=== PATIENT | male | born 1995 | race Caucasian/White ===

== ENCOUNTER 2019-11-30 13:20 | Emergency (ER) | payer BC, SELFPAY ==
[2019-11-30 13:27] VITALS: BP 137/77; PULSE 94; RESP 18; TEMP 36.3; O2SAT 97
--- NOTE | 2019-11-30 13:50 | ED.GENADUL_ITS ---
Discharge Plan Disposition Patient Disposition: HOME Discharge Details Chief Complaint: Orthopedic Clinical Impression: Right ankle sprain Primary Care Provider: None,None ED Provider: Vlad Horn Home Meds and New Rx's Prescriptions: Continued ibuprofen 800 mg Tablet 800 mg PO TID PRNRF: 0 Discharge Instructions Instructions: Ankle Sprain (ED) Additional Instructions: Please take ibuprofen over the counter. Take 600-800mg by mouth every 6-8 hours as needed for pain. Please take acetaminophen (tylenol) - 650mg every 6 hours by mouth as needed for pain. Use lace up ankle stabilizer and crutches over the next 2 weeks. If pain persists despite recommended treatment, please follow-up with orthopedics Return to the ER for any worsening or new concerning symptoms. Stand Alone Forms: Physical Therapy Referral, Work Release Referrals: Da Sanchez MD [ [facility] STAFF PHYSICIAN] - Discharge Data Discharge Date/Time-TO BE ENTERED AT DEPARTURE: 11/30/19 15:11 Medical Decision Making 6552 --24-year-old male here with right ankle pain after injury snowboarding yesterday. Patient has pain when he ambulates and is tender over his lateral malleolus. -- X-ray of the right ankle reviewed and interpreted by radiology: There is no evidence of acute fracture. There is no evidence of malalignment or dislocation. Suspect ankle sprain. Plan for lace up ankle stabilizer and crutches. HPI General Mode of arrival: ambulatory . Date/Time Provider Initiated Documentation: 11/30/19 13:35 . Limitations to Documentation: no limitations . Information obtained by: patient . HPI Narrative: 24-year-old male presents with chief complaint of right ankle pain. Patient notes yesterday was snowboarding and fell and twisted his ankle in loose boot. He has had pain in his lateral ankle since the fall. He has associated swelling. Pain is moderate and worse with ambulation. No other injury. He did not hit his head. Related Data Home Medications Medication Instructions Recorded Confirmed ibuprofen 800 mg PO TID PRN 11/30/19 11/30/19 Allergies Allergy/AdvReac Type Severity Reaction Status Date / Time No Known Allergies Allergy Unverified 11/30/19 13:30 General Stated Complaint: Orthopedic KIMBERLY: 4 Review of Systems Musculoskeletal Musculoskeletal: Reports as per HPI and Denies numbness Neurologic Neurologic: Denies numbness [facility] Social History Smoking/Tobacco Use Status: Never Alcohol Intake: current Alcohol Intake frequency: a few times a week Drug use: Never Substance use type: does not use Exam Const General: cooperative and no acute distress Cardio Rate: regular rate and not tachycardic Rhythm: regular rhythm Pulses: dorsalis pedis pulses present bilaterally 2+ Skin General skin exam: no rashes or lesions noted Neuro General: alert, awake, oriented x3 and tone normal Extrem Right lower extremity: lower leg Details: normal to inspection, ankle Details: tenderness Location: of the lateral malleolus and swelling Details: laterally and foot Details: normal to inspection Course Vital Signs Vital signs: Vital Signs Temperature 36.3 C L 11/30/19 13:27 Pulse 94 H 11/30/19 13:27 Respiratory Rate 18 11/30/19 13:27 Blood Pressure 137/77 11/30/19 13:27 Pulse Oximetry 97 11/30/19 13:27 Temperature 36.3 C L 11/30/19 13:27 Temperature Source Skin 11/30/19 13:27 Pulse 94 H 11/30/19 13:27 Respiratory Rate 18 11/30/19 13:27 Respiratory Effort Non-Labored 11/30/19 13:30 Blood Pressure 137/77 11/30/19 13:27 Blood Pressure Position Sitting 11/30/19 13:27 Pulse Oximetry 97 11/30/19 13:27 Oxygen Delivery Method Room Air 11/30/19 13:27 Oxygen Flow Rate 0 11/30/19 13:27 Pain Level 8 11/30/19 13:34
--- NOTE | 2019-11-30 13:57 | DI.RAD_ITS ---
EXAM: XR ANKLE RT COMPLETE INDICATION: injury, swelling, pain lateral,SNOWBOARDING INJURY COMPARISON: No exams were available for comparison TECHNIQUE: 2D digital imaging was performed. FINDINGS: No acute fracture or dislocation is present. There is soft tissue swelling about the ankle bilateral ly. No radiopaque foreign bodies are seen in the soft tissues. IMPRESSION: No acute fracture or dislocation.
--- NOTE | 2019-11-30 14:38 | DI.VRAD_ITS ---
PROCEDURE INFORMATION: Exam: XR Right Ankle Exam date and time: 11/30/2019 1:48 PM Age: 24 years old Clinical indication: Other: Injury, swelling, pain lateral TECHNIQUE: Imaging protocol: XR Right ankle. Views: 3 or more views. COMPARISON: No relevant prior studies available. FINDINGS: Bones/joints: There is no evidence of acute fracture.There is no evidence of malalignment or dislocation. Soft tissues: Bimalleolar soft tissue swelling IMPRESSION: There is no evidence of acute fracture.There is no evidence of malalignment or dislocation. Dictated and Authenticated by: Ronnell Yuen MD. Ordering:PAVEL Chu MD
== END 2019-11-30 15:11 | disposition home or self-care (01) ==
PROVIDERS: Emergency Provider Student in an Organized Health Care Education/Training Program
DX: S93.401A Sprain of unspecified ligament of right ankle, initial encounter (principal); V00.311A Fall from snowboard, initial encounter
CPT/HCPCS: 29515; 99283; 73610; L1902

== ENCOUNTER 2022-07-13 02:23 | Outpatient (CLI) | payer BC, SELFPAY ==
[2022-07-13 12:55] LABS: Calculated LDL 154 mg/dL (<100); Cholesterol 229 mg/dL (<200); HDL Cholesterol 53 mg/dL (40-60); Triglyceride 111 mg/dL (<150)
[2022-07-13 13:02] LABS: Hemoglobin A1C 5.3 % (<5.7)
== END 2022-07-13 02:24 | disposition home or self-care (01) ==
LOC: LOS 02:23
PROVIDERS: PCP Nurse Practitioner Family; Visit Provider Family Medicine
DX: Z13.220 Encounter for screening for lipoid disorders (principal); Z13.1 Encounter for screening for diabetes mellitus
CPT/HCPCS: 36415; 80061; 83036

== ENCOUNTER 2025-09-11 12:55 | Outpatient (CLI) | payer BC, SELFPAY ==
[2025-09-11 13:14] LABS: Hemoglobin A1C 5.1 % (<5.7)
[2025-09-11 13:37] LABS: ALT 31 U/L (16-63); AST 13 U/L (15-37); Albumin 4.4 g/dL (3.4-5.0); Alkaline Phosphatase 59 U/L (46-116); Anion Gap 7.6 mmol/L (3-11); BUN 18 mg/dL (7-18); Bilirubin, Total 0.3 mg/dL (0.2-1.0); CO2 30.4 mmol/L (21.0-32.0); Calcium 8.8 mg/dL (8.5-10.1); Calculated LDL 156 mg/dL (<100); Chloride 102 mmol/L (98-107); Cholesterol 234 mg/dL (<200); Estimated GFR 117.10 (mL/min/1.73m2); Glucose 109 mg/dL (74-106); HDL Cholesterol 68 mg/dL (>or=40); Potassium 4.2 mmol/L (3.5-5.1); Sodium 140 mmol/L (136-145); Total Protein 7.9 g/dL (6.4-8.2); Triglyceride 53 mg/dL (<150)
== END 2025-09-11 12:56 | disposition home or self-care (01) ==
LOC: LBO 12:55
PROVIDERS: PCP Nurse Practitioner Family; Visit Provider Nurse Practitioner Family
DX: Z13.220 Encounter for screening for lipoid disorders (principal); Z13.1 Encounter for screening for diabetes mellitus; R03.0 Elevated blood-pressure reading, without diagnosis of hypertension
CPT/HCPCS: 36415; 80053; 80061; 83036